=== PATIENT | male | born 1985 | race Caucasian/White ===

== ENCOUNTER 2017-02-21 00:48 | Emergency (ER) | payer SELFPAY | END 2017-02-21 06:45 | disposition home or self-care (01) | LOC: ER1 00:48 | DX: S52.122A Displaced fracture of head of left radius, initial encounter for closed fracture (principal); S70.02XA Contusion of left hip, initial encounter; S00.83XA Contusion of other part of head, initial encounter; S80.211A Abrasion, right knee, initial encounter; S70.211A Abrasion, right hip, initial encounter; V86.59XA Driver of other special all-terrain or other off-road motor vehicle injured in nontraffic accident, initial encounter | CPT/HCPCS: 29125; 73030; 73060; 73080; 73090; 73130; 73502; 99284 ==